=== PATIENT | male | born 1960 | race Caucasian/White ===

== ENCOUNTER 2023-09-05 09:02 | Observation (INO) | payer MEDICARE, SELFPAY ==
[2023-09-05] VITALS (10 sets, daily range): BP systolic 134–155; BP diastolic 70–75; PULSE 68–86; RESP 16–18; TEMP 36.6; O2SAT 92–97; BMI 35.9
--- NOTE | 2023-09-05 09:03 | XR_ITS ---
WS: [id number] Portable AP upright chest, 09/05/2023 Clinical Data: dyspnea/cough Comparison: None. Findings: There is minimal patchy opacity in the right hilum extending to the right lower lobe which could represent mild pneumonia no nodules, masses or effusions are seen. The heart is normal. The pul monary vascularity is not increased. No pneumothorax is seen. Monitor leads are on the chest wall. Impression: Minimal patchy opacity in right hilum extending into the right lower lobe which could represent pneum onia.
--- NOTE | 2023-09-05 09:03 | ECG_ITS ---
[facility] Date: 2023-09-05 Pat Name: Shay Urban Department: Room: Gender: Male Public Relations Professional: : 1960 Requested By: Nazario Lama Order Number: [id number] Patricia MD: Alberto Tidwell M.D. Measurements Intervals [place] Rate: 66 P: 58 [place]: 132 QRS: 19 QRSD: 89 T: 51 QT: 379 QTc: 398 Interpretive Statements SINUS RHYTHM WITH SINUS ARRHYTHMIA POSSIBLE LEFT ATRIAL ENLARGEMENT [-0.1mV P-WAVE IN V1/V2] No previous ECG available for comparison Electronically Signed On 09-05-2023 16:03:08 PSYCHOMETRIC EXAMINER by Alberto Tidwell M.D. [id number]
--- NOTE | 2023-09-05 09:04 | W.ED.GENADLT ---
HPI - General Adult General: Chief complaint: ER Hold Stated complaint: confused Time Seen by Provider: 09/05/23 09:03 Source: patient Mode of arrival: EMS History of Present Illness: 63-year-old male brought in by EMS from [facility]. Patient was found wandering on the side of the road by law enforcement. EMS was dispatched and brought patient to the emergency room he is altered but is awake and will answer questions difficult to get solid history from the patient. According to his wallet he is from [facility] I cannot adequately explain why he was found near [place] he states he was trying to go to [facility]. As a car evidently had run out of gas or been impounded somewhere in [place] and route to [place] and he was walking. He denies any pain chest pain abdominal pain shortness of breath fever sweats or chills. Associated symptoms: Deny chest pain, confusion, cough, diaphoresis, decreased appetite, dyspnea, fevers/chills, headache(s), malaise, nausea, rash, palpitations, seizures, short of breath, syncope, vomiting or weakness Review of Systems Const: Denies: fever(s), chills, malaise or diaphoresis Card: Denies: chest pain, palpitations or syncope Resp: Denies: dyspnea GI: Denies: abdominal pain, nausea or vomiting : Denies: dysuria, urinary frequency or urinary urgency Musc: Denies: neck pain or back pain Skin/Breast: Denies: rash Neuro: Denies: headache(s) or confusion [facility] ED PFSH: Medical History Schizoaffective disorder Hypertension Schizophrenia Cauda equina syndrome Surgical History History of hip surgery Previous back surgery Physical Exam Const: COMMON NORMALS: no acute distress GENERAL APPEARANCE: cooperative and comfortable ORIENTATION/CONSCIOUSNESS: Yes awake HENMT: COMMON NORMALS: normocephalic, atraumatic and hearing grossly normal bilaterally HEAD & SCALP: normocephalic and atraumatic Resp: COMMON NORMALS: normal respiratory effort, No retractions, No use of accessory muscles and clear to auscultation bilaterally AUSCULTATION: clear to auscultation bilaterally Cardio: COMMON NORMALS: regular rate, regular rhythm and No murmurs present (Cardio) RATE: regular rate RHYTHM: regular rhythm GI: COMMON NORMALS: Soft to palpation and No hepatosplenomegaly present AUSCULTATION: Yes normoactive bowel sounds PALPATION: Yes Soft to palpation, No Tenderness to palpation present (GI), No Guarding due to palpation present (GI) and Yes No hepatosplenomegaly present Extremity: COMMON NORMALS: normal to inspection, capillary refill normal, no clubbing, cyanosis or edema, no calf tenderness and no pedal edema Skin: COMMON NORMALS: no rashes or lesions noted GENERAL SKIN EXAM: no rashes or lesions noted Course Vital Signs: Vital signs: Vital Signs Temperature 97.9 F 09/05/23 09:08 Pulse Rate 96 09/06/23 11:26 Respiratory Rate 18 09/05/23 19:57 Blood Pressure 148/75 09/06/23 11:26 Pulse Oximetry 97 09/06/23 11:26 Oxygen Delivery Me thod Room Air 09/05/23 17:00 MDM - General Adult Medical Decision Making After some extensive bleeding were able to determine the patient was from [facility] is actually missing person for the last 3 days. Her doctor's he is schizophrenic is not been taking his medications or sleeping well and then disappeared when he left home when his car we were able after talking to several different agencies figure out that he driven to [facility] left his car there and then evidently walked in hours to [place]. Initially patient was placed on observation and plan was for him to go to [facility] to continue to monitor and reinstitute his medications he had a mild pneumonia. Ultimately he stayed in the emergency room with consultations from hospitalist and psychiatry his medications were reinstituted and he is doing well. On September 06 we initially were advised by [facility] that they would come and get the patient bring him back home he later said they were unable to do so after consultation with his we are able to send him home by a car tender. Discussed Dr. Garcia and was Dr. Bernardo will concur that at this point since he received his medications was felt safe in doing so. Patient was given Ativan 2 mg just prior to discharge to help with anxiety to return home. Up with his primary care doctor within a week of returning home resume all of his other medications. Given a prescription for Levaquin daily for 5 days by the hospitalist. Medical Records I reviewed the patient's medical records. Lab Data I reviewed the patient's lab results. 09/06/23 04:10 09/06/23 04:10 Laboratory Results WBC 8.38 10^3/uL (3.29-11.43) 09/05/23 09:37 RBC 4.89 10^6/uL (3.85-5.65) 09/05/23 09:37 Hgb 14.70 g/dL (11.27-16.99) 09/05/23 09:37 Hct 45.2 % (37-53) 09/05/23 09:37 MCV 92.4 fl (82-101) 09/05/23 09:37 MCH 30.1 pg (27-33) 09/05/23 09:37 MCHC 32.5 g/dL (30-55) 09/05/23 09:37 RDW 16.2 % (12.1-15.1) H 09/05/23 09:37 Plt Count 253 10^3/cmm (157-399) 09/05/23 09:37 MPV 9.9 fL (7.4-10.4) 09/05/23 09:37 Neut % (Auto) 68.4 % 09/05/23 09:37 Lymph % (Auto) 22.6 % 09/05/23 09:37 [place] % (Auto) 7.9 % 09/05/23 09:37 Eos % (Auto) 0.5 % 09/05/23 09:37 Baso % (Auto) 0.5 % 09/05/23 09:37 Neut # (Auto) 5.74 10^3/uL (1.8-7.7) 09/05/23 09:37 Lymph # (Auto) 1.9 10^3/uL (0.8-4.8) 09/05/23 09:37 [place] # (Auto) 0.7 10^3/uL (0.2-0.9) 09/05/23 09:37 Eos # (Auto) 0.0 10^3/uL (0.0-0.8) 09/05/23 09:37 Baso # (Auto) 0.0 10^3/uL (0.0-0.1) 09/05/23 09:37 Nucleated RBC % (auto) 0 % 09/05/23 09:37 Nucleated RBCs # 0.0 /100WBC 09/05/23 09:37 Specimen Type Arterial 09/05/23 11:28 Sample Site Radial, right 09/05/23 11:28 ABG pH 7.37 (7.35-7.45) 09/05/23 11:28 ABG pCO2 44.9 mmHg (35-45) 09/05/23 11:28 ABG pO2 88.9 mmHg (80.0-100.0) 09/05/23 11:28 ABG HCO3 26.2 mmol/L (22-26) H 09/05/23 11:28 ABG O2 Saturation 97.5 09/05/23 11:28 ABG Base Excess 0.5 mmol/L (-2.0-2.0) 09/05/23 11:28 Rishabh Test Pos 09/05/23 11:28 A-a O2 Gradient 0.6 mmHg (5-10) L 09/05/23 11:28 Hematocrit 45.1 % (42-52) 09/05/23 11:28 Hgb O2 Saturation 94.5 % (95-100) L 09/05/23 11:28 Carboxyhemoglobin 2.2 %THgb (0.4-20.1) 09/05/23 11:28 Methemoglobin 0.9 % (0.4-1.5) 09/05/23 11:28 Total Hemoglobin 14.7 g/dL (14-18) 09/05/23 11:28 Sodium 142.0 mmol/L (131-143) 09/05/23 11:28 Potassium 3.7 mmol/L (3.5-5.0) 09/05/23 11:28 Glucose 105.0 mg/dL (70-115) 09/05/23 11:28 Ionized Calcium 1.2 mmol/L (1.1-1.4) 09/05/23 11:28 O2 Delivery Device Nc 09/05/23 11:28 O2 Liters/Min 1.5 % 09/05/23 11:28 Merchandise Flow Team Leader ID Walci 09/05/23 11:28 Sodium 136 mmol/L (136-145) 09/05/23 09:37 Potassium 3.9 mmol/L (3.5-5.1) 09/05/23 09:37 Chloride 100 mmol/L (98-107) 09/05/23 09:37 Carbon Dioxide 25 mmol/L (22-29) 09/05/23 09:37 Anion Gap 14.9 (5-19) 09/05/23 09:37 BUN 16 mg/dL (8-23) 09/05/23 09:37 Creatinine 0.6 mg/dL (0.7-1.2) L 09/05/23 09:37 GFR Calculation 137.0 mL/min (90-130) H 09/05/23 09:37 Glucose 106 mg/dL (65-115) 09/05/23 09:37 Estimat Average Glucose 128 09/05/23 09:37 Hemoglobin A1c 6.1 % (4.0-6.0) H 09/05/23 09:37 Calculated Osmolality 284 mOsm/kg (285-295) L 09/05/23 09:37 Lactic Acid 1.1 mmol/L (0.5-2.2) 09/05/23 09:37 Calcium 9.2 mg/dL (8.5-10.5) 09/05/23 09:37 Total Bilirubin 0.4 mg/dL (0.15-1.2) 09/05/23 09:37 AST 18 U/L (0-40) 09/05/23 09:37 ALT 24 U/L (0-41) 09/05/23 09:37 Alkaline Phosphatase 94 U/L (40-130) 09/05/23 09:37 Ammonia 28 umol/L (16-60) 09/05/23 09:37 Total Protein 7.4 g/dL (6.6-8.7) 09/05/23 09:37 Albumin 4.1 g/dL (3.5-5.2) 09/05/23 09:37 Globulin 3.3 g/dL (1.3-4.6) 09/05/23 09:37 Lipase 19 U/L (13-60) 09/05/23 09:37 Vitamin B12 423 pg/mL (232-1245) 09/05/23 09:37 TSH 0.91 uIU/mL (0.27-4.20) 09/05/23 09:37 Urine Color Dark yellow (Yellow) 09/05/23 11:10 Urine Appearance Clear (CLEAR) 09/05/23 11:10 Urine pH 6 (5-7) 09/05/23 11:10 Ur Specific [place] 1.030 (1.005-1.030) 09/05/23 11:10 Urine Protein Neg (Negative) 09/05/23 11:10 Urine Glucose (UA) Norm (Normal) 09/05/23 11:10 Urine Ketones 2+ (Negative) H 09/05/23 11:10 Urine Blood 2+ (Negative) H 09/05/23 11:10 Urine Nitrate Negative (Negative) 09/05/23 11:10 Urine Bilirubin Neg (Negative) 09/05/23 11:10 Urine Urobilinogen 1 mg/dL (Negative) H 09/05/23 11:10 Ur Leukocyte Esterase Negative (Negative) 09/05/23 11:10 Urine RBC 0-4 /hpf (0-2) H 09/05/23 11:10 Urine WBC 0-4 /hpf (0-5) H 09/05/23 11:10 Ur Squamous Epith Cells 0-4 /hpf (0-5) H 09/05/23 11:10 Amorphous Sediment Not Reportable 09/05/23 11:10 Urine Bacteria Trace /hpf (NONE) 09/05/23 11:10 Salicylates < 0.3 mg/dL (3-10) L 09/05/23 09:37 Urine Opiates Screen Negative ng/mL (Negative) 09/05/23 11:13 Acetaminophen < 5.0 ug/mL (10-30) L 09/05/23 09:37 Ur Barbiturates Screen Negative ng/mL (Negative) 09/05/23 11:13 Ur Phencyclidine Scrn Negative ng/mL (Negative) 09/05/23 11:13 Ur Amphetamines Screen Negative ng/mL (Negative) 09/05/23 11:13 U Benzodiazepines Scrn Negative ng/mL (Negative) 09/05/23 11:13 Urine Cocaine Screen Negative ng/mL (Negative) 09/05/23 11:13 U Marijuana (THC) Screen Negative ng/mL (Negative) 09/05/23 11:13 Ethyl Alcohol < 10 mg/dL (0-10) 09/05/23 09:37 All radiology interpretation(s) finalized by discharge Discharge Plan Discharge Patient Disposition: Home Clinical Impression: Pneumonia, Schizoaffective disorder Condition: Stable Discharge Orders: Discharge Order (Routine); Ordered 09/06/23 Ordered By: Axel Bernardo Discharge ED (Routine); Ordered 09/06/23 Ordered By: Nazario Byrnes Discharge Diet: Cardiac Discharge Activity: Increase activity as tolerated Coding Level of Care Code ED [place] Burner Operator for Shanda Villagomez
[2023-09-05 09:44] LABS: Basophils % 0.5 %; Eosinophils % 0.5 %; Hematocrit 45.2 % (37-53); Lymphocytes # 1.9 10^3/uL (0.8-4.8); Lymphocytes % 22.6 %; Mean Corpuscular HGB Conc 32.5 g/dL (30-55); Mean Corpuscular Hemoglobin 30.1 pg (27-33); Mean Corpuscular Volume 92.4 fl (82-101); Mean Platelet Volume 9.9 fL (7.4-10.4); Monocytes # 0.7 10^3/uL (0.2-0.9); Monocytes % 7.9 %; Neutrophils # 5.74 10^3/uL (1.8-7.7); Neutrophils % 68.4 %; Nucleated Red Blood Cells % 0 %; Platelet Count 253 10^3/cmm (157-399); Red Blood Count 4.89 10^6/uL (3.85-5.65); Red Cell Distribution Width 16.2 % (12.1-15.1); White Blood Count 8.38 10^3/uL (3.29-11.43)
[2023-09-05 10:04] LABS: Ammonia 28 umol/L (16-60); Lactic Sepsis W/Reflex 1.1 mmol/L (0.5-2.2)
[2023-09-05 10:05] LABS: Alanine Aminotransferase 24 U/L (0-41); Albumin Level 4.1 g/dL (3.5-5.2); Alkaline Phosphatase 94 U/L (40-130); Anion Gap 14.9 (5-19); Aspartate Amino Transferase 18 U/L (0-40); Blood Urea Nitrogen 16 mg/dL (8-23); Calcium 9.2 mg/dL (8.5-10.5); Carbon Dioxide 25 mmol/L (22-29); Chloride 100 mmol/L (98-107); Globulin 3.3 g/dL (1.3-4.6); Glucose 106 mg/dL (65-115); Lipase 19 U/L (13-60); Osmolality Calculated 284 mOsm/kg (285-295); Potassium 3.9 mmol/L (3.5-5.1); Sodium 136 mmol/L (136-145); Total Bilirubin 0.4 mg/dL (0.15-1.2); Total Protein 7.4 g/dL (6.6-8.7)
--- NOTE | 2023-09-05 10:22 | CT_ITS ---
WS: [id number] CT HEAD NONCONTRAST HISTORY: AMS TECHNIQUE: Contiguous axial imaging performed through the brain in 3.0 mm imaging. Bone and soft tiss ue windows. Sagittal and coronal reformats reviewed. All CT scans at [facility] use at least one of these dose optimization techniques: automated exposure control; mA and/or kV adjustment per pa tient size (includes targeted exams where dose is matched to clinical indication); or iterative recon struction. DLP: 1171.48 mGy.cm COMPARISON: None available. No acute intracranial hemorrhage, midline shift or mass effect. Mild atrophy and small vessel ischemic disease. Ventricles: Normal size with no hydrocephalus. Paranasal sinuses: As visualized are clear. Mastoid air cells: Well pneumatized. Calvarium and scalp: Skull is intact with no soft tissue edema or swelling. IMPRESSION: 1. No acute intracranial hemorrhage or edema. 2. Mild atrophy and small vessel ischemic disease.
[2023-09-05 11:04] LABS: Acetaminophen < 5.0 ug/mL (10-30); Alcohol Level < 10 mg/dL (0-10); Salicylate < 0.3 mg/dL (3-10)
[2023-09-05 11:37] LABS: Amphetamines Screen Urine Negative (Negative); Barbiturates Screen Urine Negative (Negative); Benzodiazepines Screen Urine Negative (Negative); Cocaine Screen Urine Negative (Negative); Opiate Screen Urine Negative (Negative); PCP Screen Urine Negative (Negative); THC Screen Urine Negative (Negative)
[2023-09-05 11:39] LABS: ABG PCO2 44.9 mmHg (35-45); ABG PH Result 7.37 (7.35-7.45); Alveolar-Arterial Oxygen Gradi 0.6 mmHg (5-10); Arterial Blood Gas Hematocrit 45.1 % (42-52); Base Excess ABG 0.5 mmol/L (-2.0-2.0); Blood Gas Allen Test Pos; Blood Gas LPM 1.5 %; Blood Gas Operator Identificat WALCI; Blood Gas Sample Site Radial, right; Blood Gas Sample Type Arterial; Carboxyhemoglobin 2.2 %THgb (0.4-20.1); HCO3 ABG 26.2 mmol/L (22-26); HGB O2 Sat 94.5 % (95-100); Ionized Calcium Level - ABG 1.2 mmol/L (1.1-1.4); Methemoglobin 0.9 % (0.4-1.5); Oxygen Device NC; Oxygen Saturation ABG 97.5; PO2 ABG 88.9 mmHg (80.0-100.0); Potassium Level - ABG 3.7 mmol/L (3.5-5.0); Total Hemoglobin 14.7 g/dL (14-18)
[2023-09-05 11:49] LABS: Protein Urine Neg (Negative); Urine Appearance Clear (CLEAR); Urine Color Dark Yellow (Yellow); pH Urine 6 (5-7)
[2023-09-05 11:50] LABS: Add Urine Culture? No; Add Urine Microscopic? YES; Bacteria Urine TRACE /hpf; Bilirubin Urine Neg (Negative); Blood Urine 2+ (Negative); Glucose Urine UA Norm (Normal); Ketones Urine 2+ (Negative); Leukocyte Esterase Urine Negative (Negative); Nitrate Urine Negative (Negative); RBC Urine 0-4 /hpf (0-2); Squamous Epithelial Cell Urine 0-4 /hpf (0-5); Urobilinogen Urine 1 mg/dL (Negative); WBC Urine 0-4 /hpf (0-5)
--- NOTE | 2023-09-05 11:51 | PC.PHAR ---
pt unable to verify medications-medications entered are from the pts pharmacy in [facility] [phone]-pharmacy states that all the medications they fill for the pt
--- NOTE | 2023-09-05 13:17 | P.HP_ITS ---
Providers/Chief Complaint 2 Chief Complaint: confused History of Present Illness Shay Urban is a 63 year old male who was brought in by the EMS because patient was found on the road, on further investigation we found out that he is a missing person, he has an fadi alert, was reported to missing 48 hours ago from [place], patient drove to [place] and then walked all the way up to [place], in the ER his CBC BMP is unremarkable there is concern for pneumonia not requiring oxygen, he is afebrile, patient carries history of schizophrenia history of cauda equina. Hospice team has been requested to admit the patient to treat his pneumonia and get consultation from psych, he will need transportation back to [place]. Patient is stating that he was living with his girlfriend, they have recently , he just wanted a vacation, he started driving he was [place] [facility] when he got out of the car and started walking, he lost his way back to his car he is not sure how much he has walked, Patient is stating that he would like to inform his sister, we tried to call her, it was going on voicemail, patient is stating that he needs some help there is a lot going on in his life, he is endorsing smoking on daily basis, he does not endorse drinking alcohol, does use THC on occasional basis, he is stating that it is so expensive to afford these days. Review of Systems 2 Const: Denies: fever(s) Eyes: Denies: change in vision ENMT: Denies: throat pain Card: Denies: chest pain Resp: Reports: dyspnea GI: Denies: abdominal pain : Denies: flank pain Musc: Denies: neck pain Skin/Breast: Denies: rash Neuro: Denies: headache(s) Psych: Reports: anxiety and irritability Medications/Allergies Home Medications Medication Instructions Recorded Confirmed Last Taken Type albuterol sulfate 90 mcg/actuation 1 - 2 puff inhalation Q4H PRN 09/05/23 09/05/23 Unknown History aerosol inhaler Shortness Of Breath allopurinol 100 mg tablet 100 mg PO DAILY 09/05/23 09/05/23 Unknown History duloxetine 20 mg capsule,delayed 20 mg PO BID 09/05/23 09/05/23 Unknown History release lisinopril 20 mg tablet 20 mg PO BID 09/05/23 09/05/23 Unknown History pregabalin 75 mg capsule 75 mg PO TID PRN unknown 09/05/23 09/05/23 Unknown History risperidone 3 mg tablet 3 mg PO DAILY 09/05/23 09/05/23 Unknown History Allergies Allergy/AdvReac Type Severity Reaction Status Date / Time No Known Allergies Allergy Verified 09/05/23 09:10 PFSH Acute 2 PFSH: Medical History Schizoaffective disorder Hypertension Schizophrenia Cauda equina syndrome Surgical History History of hip surgery Previous back surgery Vitals/I&O/Wt Last Vital Signs Temp 97.9 F 09/05/23 09:08 Pulse 74 09/05/23 09:08 Resp 16 09/05/23 09:08 BP 155/75 09/05/23 09:08 Pulse Ox 97 09/05/23 09:08 Weight last 48 hrs Weight 120.202 kg Physical Exam 2 Narrative: Fecal incontinence Patient is able to put weight on his feet Awake and alert Currently on room air Obese Pleasant and cooperative Attention span is short Nonfocal neuroexam S1, S2 No audible stridor or wheezing Data 09/05/23 09:37 09/05/23 09:37 A&P Assessment and plan (1) Pneumonia: (2) Fecal incontinence: Plan Schizophrenia/schizoaffective disorder Community-acquired pneumonia Not requiring oxygen, afebrile Will consult psych Patient will need transportation back to [facility] Full code Cardiac diet Add p.o. antibiotics Manage hypertension with use of lisinopril Attestations 2 Medical Necessity Statement*: Anticipating discharge within 48 hours Diagnoses Pneumonia J18.9 Fecal incontinence R15.9
[2023-09-05] MEDS: sodium chloride 0.9% 1,000 ML 75 ML IV (14:48)
[2023-09-05 14:52] LABS: Estmated Average Glucose 128; Hemoglobin A1C 6.1 % (4.0-6.0)
[2023-09-05 15:09] LABS: Thyroid Stimulating Hormone 0.91 uIU/mL (0.27-4.20); Vitamin B12 423 pg/mL (232-1245)
[2023-09-05] MEDS: duloxetine 20 mg Capsule PO (18:31)
[2023-09-05] MEDS: lisinopril 20 mg Tablet PO (18:31)
[2023-09-06] MEDS: acetaminophen 325 mg Tablet 650 MG PO (03:45)
[2023-09-06 04:26] LABS: Basophils # 0.1 10^3/uL (0.0-0.1); Basophils % 0.8 %; Eosinophils # 0.1 10^3/uL (0.0-0.8); Eosinophils % 1.7 %; Hematocrit 40.9 % (37-53); Lymphocytes % 33.2 %; Mean Corpuscular HGB Conc 33.7 g/dL (30-55); Mean Corpuscular Hemoglobin 30.8 pg (27-33); Mean Corpuscular Volume 91.3 fl (82-101); Mean Platelet Volume 10.2 fL (7.4-10.4); Monocytes # 0.7 10^3/uL (0.2-0.9); Neutrophils # 3.14 10^3/uL (1.8-7.7); Nucleated Red Blood Cells % 0 %; Platelet Count 244 10^3/cmm (157-399); Red Blood Count 4.48 10^6/uL (3.85-5.65); Red Cell Distribution Width 16.1 % (12.1-15.1); White Blood Count 5.93 10^3/uL (3.29-11.43)
[2023-09-06 04:43] LABS: Anion Gap 14.2 (5-19); Blood Urea Nitrogen 19 mg/dL (8-23); Carbon Dioxide 24 mmol/L (22-29); Chloride 101 mmol/L (98-107); Creatinine Clr Calc Pharmacy 148.3457; Glomerular Filtration Rate 114.6 mL/min (90-130); Glucose 140 mg/dL (65-115); Osmolality Calculated 285 mOsm/kg (285-295); Phosphorus 3.6 mg/dL (2.5-4.5); Potassium 4.2 mmol/L (3.5-5.1); Sodium 135 mmol/L (136-145)
[2023-09-06] MEDS: risperiDONE 1 mg Tablet 3 MG PO (07:35)
--- NOTE | 2023-09-06 07:52 | PM.DCS ---
Discharge Providers Date of Admission: 09/05/23 13:00 Date of Discharge: September 06, 2023 Attending Provider at Admission: Axel Bernardo MD Attending Provider at Discharge: Axel Bernardo MD Diagnoses at Discharge Discharge Diagnosis (1) Pneumonia: Status: Acute (2) Fecal incontinence: Status: Acute Reason for Visit Reason for Visit: confused Hospital Course Hospital Course 63-year male who was admitted to hospital service for management of pneumonia and dehydration. This patient was brought in by EMS when he was found wandering on the street, on further investigation we found out that he was a missing person and alert was called 2 days ago he lives in [place], patient is stating that he had an argument with his girlfriend and he wanted to drive to cool down however patient when he reached [place] he tried to take a walk and forgot his way back ended up in [place] and then he walked all the way up to [place]. He is saying he has history of cauda equina that was operated, he is able to walk, no urinary incontinence but has chronic fecal incontinence. [place] PD will escort him back. He was given p.o. antibiotics for right-sided hilar lymphadenopathy and possible pneumonia. Physical Exam Narrative: Pleasant cooperative GCS 15 Nonfocal neuroexam S1, S2 Currently on room air Discharge Data Studies Completed and Pending Completed Studies During Hospitalization Category Date Time Status CT head wo con* [id number] Stat Cat Scan 09/05/23 10:22 Completed XR chest 1V portable [id number] Stat Exams 09/05/23 09:03 Completed Pending at discharge Category Date Time Status Blood Cultures ([facility]) Routine Lab 09/05/23 09:30 Received Blood Cultures ([facility]) Routine Lab 09/05/23 09:37 Received Laboratory Results WBC 5.93 10^3/uL (3.29-11.43) 09/06/23 04:10 RBC 4.48 10^6/uL (3.85-5.65) 09/06/23 04:10 Hgb 13.80 g/dL (11.27-16.99) 09/06/23 04:10 Hct 40.9 % (37-53) 09/06/23 04:10 MCV 91.3 fl (82-101) 09/06/23 04:10 MCH 30.8 pg (27-33) 09/06/23 04:10 MCHC 33.7 g/dL (30-55) 09/06/23 04:10 RDW 16.1 % (12.1-15.1) H 09/06/23 04:10 Plt Count 244 10^3/cmm (157-399) 09/06/23 04:10 MPV 10.2 fL (7.4-10.4) 09/06/23 04:10 Neut % (Auto) 53.0 % 09/06/23 04:10 Lymph % (Auto) 33.2 % 09/06/23 04:10 [place] % (Auto) 11.0 % 09/06/23 04:10 Eos % (Auto) 1.7 % 09/06/23 04:10 Baso % (Auto) 0.8 % 09/06/23 04:10 Neut # (Auto) 3.14 10^3/uL (1.8-7.7) 09/06/23 04:10 Lymph # (Auto) 2.0 10^3/uL (0.8-4.8) 09/06/23 04:10 [place] # (Auto) 0.7 10^3/uL (0.2-0.9) 09/06/23 04:10 Eos # (Auto) 0.1 10^3/uL (0.0-0.8) 09/06/23 04:10 Baso # (Auto) 0.1 10^3/uL (0.0-0.1) 09/06/23 04:10 Nucleated RBC % (auto) 0 % 09/06/23 04:10 Nucleated RBCs # 0.0 /100WBC 09/06/23 04:10 Specimen Type Arterial 09/05/23 11:28 Sample Site Radial, right 09/05/23 11:28 ABG pH 7.37 (7.35-7.45) 09/05/23 11:28 ABG pCO2 44.9 mmHg (35-45) 09/05/23 11:28 ABG pO2 88.9 mmHg (80.0-100.0) 09/05/23 11:28 ABG HCO3 26.2 mmol/L (22-26) H 09/05/23 11:28 ABG O2 Saturation 97.5 09/05/23 11:28 ABG Base Excess 0.5 mmol/L (-2.0-2.0) 09/05/23 11:28 Rishabh Test Pos 09/05/23 11:28 A-a O2 Gradient 0.6 mmHg (5-10) L 09/05/23 11:28 Hematocrit 45.1 % (42-52) 09/05/23 11:28 Hgb O2 Saturation 94.5 % (95-100) L 09/05/23 11:28 Carboxyhemoglobin 2.2 %THgb (0.4-20.1) 09/05/23 11:28 Methemoglobin 0.9 % (0.4-1.5) 09/05/23 11:28 Total Hemoglobin 14.7 g/dL (14-18) 09/05/23 11:28 Sodium 142.0 mmol/L (131-143) 09/05/23 11:28 Potassium 3.7 mmol/L (3.5-5.0) 09/05/23 11:28 Glucose 105.0 mg/dL (70-115) 09/05/23 11:28 Ionized Calcium 1.2 mmol/L (1.1-1.4) 09/05/23 11:28 O2 Delivery Device Nc 09/05/23 11:28 O2 Liters/Min 1.5 % 09/05/23 11:28 Monkey Breeder ID Walci 09/05/23 11:28 Sodium 135 mmol/L (136-145) L 09/06/23 04:10 Potassium 4.2 mmol/L (3.5-5.1) 09/06/23 04:10 Chloride 101 mmol/L (98-107) 09/06/23 04:10 Carbon Dioxide 24 mmol/L (22-29) 09/06/23 04:10 Anion Gap 14.2 (5-19) 09/06/23 04:10 BUN 19 mg/dL (8-23) 09/06/23 04:10 Creatinine 0.7 mg/dL (0.7-1.2) 09/06/23 04:10 GFR Calculation 114.6 mL/min (90-130) 09/06/23 04:10 Glucose 140 mg/dL (65-115) H 09/06/23 04:10 Estimat Average Glucose 128 09/05/23 09:37 Hemoglobin A1c 6.1 % (4.0-6.0) H 09/05/23 09:37 Calculated Osmolality 285 mOsm/kg (285-295) 09/06/23 04:10 Lactic Acid 1.1 mmol/L (0.5-2.2) 09/05/23 09:37 Calcium 9.0 mg/dL (8.5-10.5) 09/06/23 04:10 Phosphorus 3.6 mg/dL (2.5-4.5) 09/06/23 04:10 Magnesium 2.0 mg/dL (1.7-2.3) 09/06/23 04:10 Total Bilirubin 0.4 mg/dL (0.15-1.2) 09/05/23 09:37 AST 18 U/L (0-40) 09/05/23 09:37 ALT 24 U/L (0-41) 09/05/23 09:37 Alkaline Phosphatase 94 U/L (40-130) 09/05/23 09:37 Ammonia 28 umol/L (16-60) 09/05/23 09:37 Total Protein 7.4 g/dL (6.6-8.7) 09/05/23 09:37 Albumin 4.1 g/dL (3.5-5.2) 09/05/23 09:37 Globulin 3.3 g/dL (1.3-4.6) 09/05/23 09:37 Lipase 19 U/L (13-60) 09/05/23 09:37 Vitamin B12 423 pg/mL (232-1245) 09/05/23 09:37 TSH 0.91 uIU/mL (0.27-4.20) 09/05/23 09:37 Urine Color Dark yellow (Yellow) 09/05/23 11:10 Urine Appearance Clear (CLEAR) 09/05/23 11:10 Urine pH 6 (5-7) 09/05/23 11:10 Ur Specific [place] 1.030 (1.005-1.030) 09/05/23 11:10 Urine Protein Neg (Negative) 09/05/23 11:10 Urine Glucose (UA) Norm (Normal) 09/05/23 11:10 Urine Ketones 2+ (Negative) H 09/05/23 11:10 Urine Blood 2+ (Negative) H 09/05/23 11:10 Urine Nitrate Negative (Negative) 09/05/23 11:10 Urine Bilirubin Neg (Negative) 09/05/23 11:10 Urine Urobilinogen 1 mg/dL (Negative) H 09/05/23 11:10 Ur Leukocyte Esterase Negative (Negative) 09/05/23 11:10 Urine RBC 0-4 /hpf (0-2) H 09/05/23 11:10 Urine WBC 0-4 /hpf (0-5) H 09/05/23 11:10 Ur Squamous Epith Cells 0-4 /hpf (0-5) H 09/05/23 11:10 Amorphous Sediment Not Reportable 09/05/23 11:10 Urine Bacteria Trace /hpf (NONE) 09/05/23 11:10 Salicylates < 0.3 mg/dL (3-10) L 09/05/23 09:37 Urine Opiates Screen Negative ng/mL (Negative) 09/05/23 11:13 Acetaminophen < 5.0 ug/mL (10-30) L 09/05/23 09:37 Ur Barbiturates Screen Negative ng/mL (Negative) 09/05/23 11:13 Ur Phencyclidine Scrn Negative ng/mL (Negative) 09/05/23 11:13 Ur Amphetamines Screen Negative ng/mL (Negative) 09/05/23 11:13 U Benzodiazepines Scrn Negative ng/mL (Negative) 09/05/23 11:13 Urine Cocaine Screen Negative ng/mL (Negative) 09/05/23 11:13 U Marijuana (THC) Screen Negative ng/mL (Negative) 09/05/23 11:13 Ethyl Alcohol < 10 mg/dL (0-10) 09/05/23 09:37 Vitals Last Vital Signs Temp 97.9 F 09/05/23 09:08 Pulse 68 09/05/23 19:57 Resp 18 09/05/23 19:57 BP 134/70 09/05/23 19:57 Pulse Ox 92 09/05/23 19:57 O2 Del Method Room Air 09/05/23 17:00 Discharge Plan Discharge Patient Disposition: Home Condition: Stable Prescriptions: New levofloxacin 750 mg Tablet 750 mg PO DAILY Qty: 5 0RF Continued lisinopril 20 mg tablet 20 mg PO BID allopurinol 100 mg tablet 100 mg PO DAILY risperidone 3 mg tablet 3 mg PO DAILY albuterol sulfate 90 mcg/actuation HFA aerosol inhaler 1 - 2 puff INHALATION Q4H PRN (Reason: Shortness Of Breath) duloxetine 20 mg capsule,delayed release(DR/EC) 20 mg PO BID pregabalin 75 mg capsule 75 mg PO TID PRN (Reason: unknown) Discharge Orders: Discharge Order (Routine); Ordered 09/06/23 Ordered By: Axel Bernardo Discharge Diet: Cardiac Patient Instructions: Altered Mental Status (ED), Opioid Safety Discharge Attestations Time Spent in Discharge Care*: greater than 30 min Quality Metrics Clinical Quality Measures [ No reported AMI, CVA or VTE this stay] Coding Level of Care Code Acute Code for Chg Fwd Diagnoses Pneumonia J18.9 Fecal incontinence R15.9
[2023-09-06] MEDS: sennosides-docusate Tablet 1 TAB PO (08:33)
[2023-09-06] MEDS: lisinopril 20 mg Tablet PO (08:33)
[2023-09-06] MEDS: levoFLOXacin 750 mg Tablet PO (08:33)
--- NOTE | 2023-09-06 09:45 | PC.NURSE ---
pt transfer of care pt care taken over by this nurse at approx 0900. pt in bed, eyes closed, resp even. update at this time is working on a ride.
--- NOTE | 2023-09-06 11:18 | PC.SOCIAL ---
Transportation: Spoke with patient's about transportation home. She states that she is unable to come and get him and her zoroastrian friends are 80 years old and unable to come. She is willing to pay for [employer] ride. [facility]man quotes $114. Patient's updated and agreeable to pay. Usman states that he is trying to find a van driver and will call ER directly with ETA to pick up operator. Called and updated ER of this info. Spoke with patient and let him know about ride. Updated him that the ride is taking him directly to his house. Explained that they will not be taking to him to his truck. Explained that I have spoken with his about this, and that he and her and a friend will be able to go and get it at a later time. He is agreeable to this. Spoke with both Dr. Byrnes, Dr. Garcia, and operations team in regards to mode of transportation.
[2023-09-06 11:26] VITALS: BP 148/75; PULSE 96; O2SAT 97
[2023-09-06 17:09] VITALS: BP 148/75; PULSE 96; O2SAT 97
--- NOTE | 2023-09-06 17:11 | PC.NURSE ---
Call received from ER stating that they were having difficulty discharging patient from system. Discharged patient from system on [facility] side and marked assessments as not done as there were assessments performed on ER side of documentation.
== END 2023-09-06 13:22 | disposition home or self-care (01) ==
LOC: ER 13:35 → ER IP 14:07
PROVIDERS: Admitting Provider Internal Medicine; Emergency Provider Family Medicine; Visit Provider Internal Medicine
DX: J18.9 Pneumonia, unspecified organism (principal); R15.9 Full incontinence of feces; E86.0 Dehydration; F20.9 Schizophrenia, unspecified; I10 Essential (primary) hypertension
CPT/HCPCS: 36415; 36600; 70450; 71045; 80048; 80051; 80053; 80306; 80307; 81001; 82140; 82330; 82607; 82805; 83036; 83605; 83690; 83735; 84100; 84443; 85025; 87040; 93005; 99285; G0378; J7030